=== PATIENT | male | born 1985 ===

== ENCOUNTER 2021-08-27 06:05 | Day surgery (SDC) | payer OTHER ==
[~2021-08-27 06:05] MED LIST: ZYLOPRIM100 M1 PO
== END 2021-08-27 17:30 | disposition home or self-care (01) ==
LOC: CIR.AMB 06:05
PROVIDERS: ATTEND Urology
DX: N47.1 Phimosis (principal); Z20.822 Contact with and (suspected) exposure to COVID-19